=== PATIENT | male | born 1980 | race African-American/Black ===

== ENCOUNTER 2016-05-05 20:35 | Observation (INO) | payer OTHER ==
[~2016-05-05] VITALS: Ht 185.4 cm; Wt 86.2 kg
[~2016-05-05 20:35] MED LIST: CYCLOBENZAPRINE10 M1 PO; KEFLEX500 M1 PO; NAPROXEN500 M2 PO
--- NOTE | 2016-05-05 20:39 | NUR ---
PRESENTS TO ED FOR EVALUATION OF PAINFULL LEFT HIATAL HERNIA. REPORTS INCREASE IN PAIN X 2 DAYS AND UNABLE TO TALORATE PAIN NOW.
--- NOTE | 2016-05-05 21:02 | ED GI/GU/ABDOMINAL COMPLAINT ---
History of Present Illness General Chief Complaint: General Adult Stated Complaint: HERNIA? Source: patient Exam Limitations: no limitations Vital Signs & Intake/Output Vital Signs & Intake/Output Vital Signs Date Time Temp Pulse Resp B/P Pulse O2 O2 Flow FiO2 Ox Delivery Rate 05/05 2037 98.7 81 18 140/83 97 Room Air ED Intake and Output 05/06 0000 05/05 1200 Intake Total Output Total Balance Patient 190 lb Weight Allergies Coded Allergies: No Known Allergies (08/27/15) Reconcile Medications Cephalexin (Keflex) 500 MG CAPSULE 1 TAB PO Q12 NASAL FRACTURE Triage Note: PRESENTS TO ED FOR EVALUATION OF PAINFULL LEFT HIATAL HERNIA. REPORTS INCREASE IN PAIN X 2 DAYS AND UNABLE TO TALORATE PAIN NOW. Triage Nurses Notes Reviewed? yes Onset: Gradual Duration: hour(s):, day(s):, continues in ED Timing: single episode today Quality/Severity: sharpness Location: left groin Radiation: no radiation Prior Abdominal Problems: similar symptoms Modifying Factors: Improves With: rest. Associated Symptoms: swelling in left groin HPI: 35 yo gentleman presents with left groin pain. He notes, "Sometimes it gets swollen and when I lay on my back I can push it back in... but this time, I couldn't push it in." He notes no vomiting, diarrhea. He has had normal bowel movements. Past History Travel History Traveled to [place] past 21 day No Medical History Any Pertinent Medical History? see below for history Neurological: seizure Respiratory: asthma Musculoskeletal: chronic back pain Surgical History Surgical History: non-contributory Psychosocial History What is your primary language Persian Tobacco Use: Current Daily Use Daily Tobacco Use Amount/Type: => 5 Cigarettes daily Family History Hx Contributory? No Review of Systems Review of Systems Constitutional: Reports: no symptoms. EENTM: Reports: no symptoms. Respiratory: Reports: no symptoms. Cardiovascular: Reports: no symptoms. GI: Reports: no symptoms. Genitourinary: Reports: no symptoms. Musculoskeletal: Reports: no symptoms. Skin: Reports: no symptoms. Neurological/Psychological: Reports: no symptoms. Hematologic/Endocrine: Reports: no symptoms. Immunologic/Allergic: Reports: no symptoms. All Other Systems: Reviewed and Negative Physical Exam Physical Exam General Appearance: well developed/nourished, mild distress Head: atraumatic Eyes: Bilateral: normal appearance. Ears, Nose, Throat, Mouth: hearing grossly normal Neck: normal inspection Respiratory: normal breath sounds, chest non-tender, no respiratory distress, quiet respiration, lungs clear Cardiovascular: regular rate/rhythm Gastrointestinal: 3 X 4 CM HARD NODULAR MASS AND LEFT INGUINAL REGION CONSISTENT WITH HERNIA. aFTER SIGNIFICANT PRESSURE, i WAS NOT ABLE TO REDUCE THE HERNIA Back: normal inspection Extremities: normal range of motion Neurologic/Psych: no motor/sensory deficits, awake, alert, oriented x 3 Core Measures ACS in differential dx? No Severe Sepsis Present: No Septic Shock Present: No Progress Differential Diagnosis: hernia vs abscess vs other. Plan of Care: Orders Procedure Date/time Status Place in observation 05/05 2322 Active PARTIAL THROMBOPLASTIN TIME 05/05 2146 Complete PROTHROMBIN TIME 05/05 2146 Complete COMPREHENSIVE METABOLIC PANEL 05/05 2146 Complete CBC WITHOUT DIFFERENTIAL 05/05 2146 Complete Laboratory Tests 05/05/16 2210: Anion Gap 9, Estimated GFR > 60, BUN/Creatinine Ratio 13.0, Glucose 83, Calcium 9.0, Total Bilirubin 0.3, AST 19, ALT 33, Alkaline Phosphatase 72, Total Protein 6.7, Albumin 3.8, Globulin 2.9, Albumin/Globulin Ratio 1.3, PT 12.0, INR 1.14, APTT 30, CBC w Diff NO MAN DIFF REQ, RBC 5.04, MCV 81.4, MCH 26.5 L, RDW 15.2 H, MPV 7.8, Gran % 63.6, Lymphocytes % 25.3, Monocytes % 8.3, Eosinophils % 1.8, Basophils % 1.0, Absolute Granulocytes 4.1, Absolute Lymphocytes 1.6, Absolute Monocytes 0.5, Absolute Eosinophils 0.1, Absolute Basophils 0.1, PUBS MCHC 32.6 L Initial ED EKG: none Departure Departure Disposition: STILL A PATIENT Condition: Stable Clinical Impression Primary Impression: Incarcerated hernia Referrals: UNKNOWN (PCP/Family) Departure Forms: Customer Survey General Discharge Information Comments 05/05/16, 22:10... discussed with dr. sheffield (surgery)... will order ct scan and have surgical PA to evaluate OR/GI Note Spoke With: ZULEYKA BASURTO DO ED Treatment Decision: ITZ QUINTERO requires urgent operative management or an emergent procedure that cannot be performed in the Emergency Room setting. pt with incarcerated hernia. to 0r for repair. Transport To: [facility]
--- NOTE | 2016-05-05 21:44 | NUR ---
PT AWAITS MD TO ATTEMPT TO REDUCE HERNIA.
--- NOTE | 2016-05-05 22:01 | NUR ---
MED WITH DILAUDID 1 MG IV UNABLE TO DOCUMENT AT THIS TIME PHARMACY IS IN COMPUTER.
--- NOTE | 2016-05-05 22:08 | NUR ---
LABS DRAWN AND SENT.
[2016-05-05 22:15] LABS: ABSOLUTE BASOPHIL COUNT 0.1 /CUMM (0.0-0.2); ABSOLUTE EOSINOPHIL COUNT 0.1 /CUMM (0.0-0.7); ABSOLUTE GRANULOCYTE CT 4.1 /CUMM (1.4-6.5); ABSOLUTE LYMPH COUNT 1.6 /CUMM (1.2-3.4); ABSOLUTE MONOCYTE COUNT 0.5 /CUMM (0.10-0.60); EOSINOPHIL % 1.8 % (0-5); GRANULOCYTE % 63.6 % (42.2-75.2); MEAN CORPUSCULAR HGB 26.5 PG (27.0-31.0); MEAN CORPUSCULAR HGB CONC 32.6 G/DL (33.0-37.0); MEAN CORPUSCULAR VOLUME 81.4 FL (80.0-94.0); MEAN PLATELET VOLUME 7.8 FL (7.4-10.4); PLATELET COUNT 233 /CUMM (130-400); RBC DISTRIBUTION WIDTH 15.2 % (11.5-14.5); RED BLOOD CELL CT 5.04 /CUMM (4.70-6.10); WHITE BLOOD CELL COUNT 6.4 /CUMM (4.8-10.8)
--- NOTE | 2016-05-05 22:17 | NUR ---
SCAN ORDERED PER REQUEST OF SURGERY.
[2016-05-05 22:28] LABS: PTT 30 SEC (25-37)
--- NOTE | 2016-05-05 22:30 | NUR ---
SURGICAL PA AT BEDSIDE.
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
--- NOTE | 2016-05-05 23:19 | CT SCAN REPORT ---
EXAMINATION: CT ABDOMEN AND PELVIS WITHOUT CONTRAST CLINICAL INFORMATION: Left inguinal hernia. COMPARISON: None. TECHNIQUE: Contiguous axial thin section helical images of the abdomen and pelvis were performed without oral or IV contrast. The data set was reformatted in the coronal and sagittal planes and reviewed on an independent workstation. DLP: 288 mGy-cm. FINDINGS: There is dependent bibasilar atelectasis. The visualized lung bases are otherwise clear. The visualized portions of the heart are unremarkable. The liver is of normal size and attenuation without focal lesions nor intrahepatic biliary ductal dilation. A normal gallbladder is identified. There is no wall thickening or discernible pericholecystic fluid. The spleen, pancreas, adrenal glands are unremarkable. Both kidneys are of normal size and attenuation without hydronephrosis or nephrolithiasis. There is no abdominal free fluid. There is neither mesenteric nor retroperitoneal lymphadenopathy. There is a bowel containing left inguinal hernia. Proximal to this, there are dilated loops of small bowel. There is no pelvic free fluid. The urinary bladder is unremarkable. There is neither pelvic nor inguinal lymphadenopathy. Bone windows: Neither sclerotic nor lytic bone lesions are identified. IMPRESSION: Obstructive left inguinal hernia.
--- NOTE | 2016-05-05 23:45 | NUR ---
AWAITS OR TEAM.
[2016-05-06] VITALS: BP 108/78
--- NOTE | 2016-05-06 | NUR ---
PT USES WALKER OT AMBULATE AND WEARS BRACES TO ASSIT WITH AMBULATION.
--- NOTE | 2016-05-06 01:49 | Operative Report ---
Operative/Inv Procedure Report Surgery Date: 05/06/16 Name of Procedure: Open left inguinal hernia repair with mesh Pre-Operative Diagnosis: Incarcerated left inguinal hernia Post-Operative Diagnosis: Same Estimated Blood Loss: less than 50ml Surgeon/Skills Auditor: ZULEYKA BEARD Anesthesia: general endotracheal tube IV Fluids: 1000 cc Drains: none Specimens: none Complications: none Condition: stable Operative Indication: This is a 35-year-old male that presented with acute onset of left groin pain that started earlier today. Patient with a long history of a known left inguinal hernia. However today the hernia "popped out" and the patient was not able to push it back in. In the emergency room the patient was found to have a left incarcerated inguinal hernia causing a small bowel obstruction. An open repair with mesh was discussed in detail. All risks including but not limited to bleeding, infection, chronic pain, recurrence, and injury to surrounding structures were discussed in detail. Also the risk of possible small bowel resection was discussed. The patient understood everything and decided to proceed. Operative/Procedure Note Note: The patient was brought to the operating room and placed on the table in supine position. Venodyne stockings were placed and adequate general endotracheal anesthesia was obtained. A TAP block was performed by anesthesia. The patient was prepped and draped in standard surgical fashion. Began the procedure by making a 5 cm incision in the left groin over the inguinal canal. Of note, the hernia reduced with induction of general anesthesia. Incision was carried down through subcutaneous fat to Graciela's fascia which was opened using Bovie electrocautery maintaining hemostasis. External oblique aponeurosis was identified and opened along its fibers to the external ring. Cord structures were circumferentially dissected along the pubic tubercle. A Everton drain was placed underneath for retraction. We then examined the cord structures which were identified and then a small hernia sac was noted coming out of the indirect space. The hernia sac was isolated and dissected off cord structures all the way down to the external ring. The hernia sac was opened, no evidence of any abnormalities were noted, no bowel was identified within the hernia sac. At that point a high ligation of the hernia sac was performed using 2-0 Vicryl suture. The hernia sac was cut above the suture and handed off the field. A moderate defect was noted in the indirect space. No other hernia sacs/lipomas were identified. Cord structures were identified and preserved. A large plug was placed in the indirect space and secured superiorly and inferiorly using 2-0 Prolene suture. A patch was then placed over the pelvic floor and secured superiorly and inferiorly using 2-0 Prolene suture in a running fashion. At the completion the inguinal floor was adequately covered the mesh appeared to be in good position. No obvious bleeding was noted. There was adequate room for the cord structures going through the hernia patch. At that point the external oblique aponeurosis was closed using 2-0 Vicryl suture in a running fashion. Graciela's fascia was closed using 3-0 Vicryl suture in an interrupted fashion. Skin was closed using 4-0 Monocryl. Steri-Strips and dressings were placed. The patient was successfully extubated and transferred to the recovery room in stable condition. The patient tolerated the procedure well complications. Findings: indirect defect, hernia spontaneously reduced with induction, large plug and patch used
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
[2016-05-06 06:00] VITALS: BP 128/74
--- NOTE | 2016-05-06 06:08 | Admission Core Measures ---
Admission Lab Results I reviewed the following labs: Laboratory Tests 05/05 2209 Chemistry Sodium (137 - 145 mmol/L) 139 Potassium (3.5 - 5.1 mmol/L) 3.8 Chloride (98 - 107 mmol/L) 103 Carbon Dioxide (22 - 30 mmol/L) 27 Anion Gap (5 - 16) 9 BUN (9 - 20 mg/dL) 13 Creatinine (0.7 - 1.2 mg/dL) 1.0 Estimated GFR (>60 ml/min) > 60 BUN/Creatinine Ratio (7 - 25 %) 13.0 Glucose (65 - 99 mg/dL) 83 Calcium (8.4 - 10.2 mg/dL) 9.0 Total Bilirubin (0.2 - 1.3 mg/dL) 0.3 AST (17 - 59 U/L) 19 ALT (21 - 72 U/L) 33 Alkaline Phosphatase (< 127 U/L) 72 Total Protein (6.3 - 8.2 g/dL) 6.7 Albumin (3.5 - 5.0 g/dL) 3.8 Globulin (1.9 - 4.2 gm/dL) 2.9 Albumin/Globulin Ratio (1.1 - 2.2 %) 1.3 Coagulation PT (9.4 - 12.5 SEC) 12.0 INR (0.90 - 1.17) 1.14 APTT (25 - 37 SEC) 30 Hematology CBC w Diff NO MAN DIFF REQ WBC (4.8 - 10.8 /CUMM) 6.4 RBC (4.70 - 6.10 /CUMM) 5.04 Hgb (14.0 - 18.0 G/DL) 13.4 L Hct (42 - 52 %) 41.0 L MCV (80.0 - 94.0 FL) 81.4 MCH (27.0 - 31.0 PG) 26.5 L RDW (11.5 - 14.5 %) 15.2 H Plt Count (130 - 400 /CUMM) 233 MPV (7.4 - 10.4 FL) 7.8 Gran % (42.2 - 75.2 %) 63.6 Lymphocytes % (20.5 - 51.1 %) 25.3 Monocytes % (1.7 - 9.3 %) 8.3 Eosinophils % (0 - 5 %) 1.8 Basophils % (0.0 - 2.0 %) 1.0 Absolute Granulocytes (1.4 - 6.5 /CUMM) 4.1 Absolute Lymphocytes (1.2 - 3.4 /CUMM) 1.6 Absolute Monocytes (0.10 - 0.60 /CUMM) 0.5 Absolute Eosinophils (0.0 - 0.7 /CUMM) 0.1 Absolute Basophils (0.0 - 0.2 /CUMM) 0.1 PUBS MCHC (33.0 - 37.0 G/DL) 32.6 L Admission Meds I reviewed the following Meds: Current Medications Sig/Lacie Start time Last Medication Dose Stop Time Status Admin Cyclobenzaprine HCl 10 MG BID PRN 05/06 0230 AC (Flexeril 10MG Tab) Hydromorphone HCl 1 MG Q4P PRN 05/06 0215 AC (Dilaudid) Ondansetron HCl 4 MG Q6P PRN 05/06 0215 AC (Zofran) Oxycodone/ 1 TAB Q4P PRN 05/06 0215 AC Acetaminophen (Percocet) Oxycodone/ 2 TAB Q4P PRN 05/06 0215 AC Acetaminophen (Percocet) Acute Coronary Syndrome Inclusion Criteria ACS Diagnosis No Inpatient Core Measures LDL Reminder: If No, please order W/I first 24hr of stay Congestive Heart Failure Inclusion Criteria CHF Diagnosis No Cerebrovascular accident Inclusion Criteria CVA/TIA Diagnosis No Inpatient Core Measures Bedside Swallow Eval Reminder: If BSE failed, place ST order Antithrombotic Reminder: Order Antithrombotic Medication by end of day 2 Antithrombotic Reminder: Document Reason Antithrombotic Not ordered by end of day 2 AFIB/Flutter Reminder: If Present, add to problem list AFIB/Flutter Reminder: Order Anticoag Medication for pts with AFIB/Flutter Atherosclerosis Reminder: If Present, add to problem list LDL Reminder: If No, please order W/I first 24hr of stay PT Order Reminder: If No, please order Venous thromboembolism Inpatient Core Measures VTE Risk Factors: Acute medical illness, Smoking, Surgery VTE Prophylaxis Ordered Inpt Mech & Pharm No Mech VTE prophylaxis d/t No contraindications No VTE Pharm Prophylaxis d/t No contraindications Inclusion Criteria - Per Current guidelines, there needs to be overlap - treatment for the first 5 days of Warfarin therapy. - Parenteral Anticoagulation (IV or SC) needs to be - given along with Warfarin therapy. VTE Diagnosis No VTE Type NONE VTE Confirmed by (Test) NONE Problem List As ranked by this Provider includes Assessment & Plan 1. Incarcerated hernia HOME MEDS Home Med List Cyclobenzaprine HCl 10 MG TABLET 1 TAB PO BID PRN SPASM (Reported) Naproxen 500 MG TABLET 1 TAB PO BID PAIN (Reported)
--- NOTE | 2016-05-06 07:21 | Patient Discharge Instructions ---
Discharge Instructions General Discharge Information You were seen/treated for: Incarcerated left inguinal hernia You had these procedures: 05/05/16 Open left inguinal hernia repair with mesh Watch for these problems: Redness, swelling, fever, purulent drainage, signs of infection. Uncontrolled pain. Excessive bleeding. Unable to tolerated diet. Chest pain. Shortness of breath. Do not soak the wound: Yes No bath, but you may shower: Yes Other wound care: Daily dressing changes or as needed. Diet Continue normal diet: Yes Recommended Diet: Low Residue Activity Full Activity/No Limits: No Pounds, do NOT lift more than: 15 Other activity limits: No strenuous activity or exercise Acute Coronary Syndrome Inclusion Criteria At DC or during hospital stay patient has or had the following: ACS DIAGNOSIS No Discharge Core Measures Meds if any: Prescribed or Continued at Discharge Meds if any: NOT Prescribed or Continued at Discharge Congestive Heart Failure Inclusion Criteria At DC or during hospital stay patient has or had the following: CHF DIAGNOSIS No Discharge Core Measures Meds if any: Prescribed or Continued at Discharge Meds if any: NOT Prescribed or Continued at Discharge Cerebrovascular accident Inclusion Criteria At DC or during hospital stay patient has or had the following: CVA/TIA Diagnosis No Discharge Core Measures Meds if any: Prescribed or Continued at Discharge Meds if any: NOT Prescribed or Continued at Discharge Venous thromboembolism Inclusion Criteria VTE Diagnosis No VTE Type NONE VTE Confirmed by (Test) NONE Discharge Core Measures - Per Current guidelines, there needs to be overlap - treatment for the first 5 days of Warfarin therapy. - If discharged on Warfarin prior to 5 days of - overlap therapy, the patient will need to be - assessed for post discharge needs including - *Post discharge parental anticoagulation - *Warfarin and/or parental anticoagulation education - *Follow up date to check INR post discharge At least 5 days overlap therapy as Inpatient No Meds if any: Prescribed or Continued at Discharge Note: Overlap Therapy is Warfarin and Anticoagulant Meds if any: NOT Prescribed or Continued at Discharge
[2016-05-06] MEDS ORDERED: PERCOCET 5-3251 EACH PO (07:22)
--- NOTE | 2016-05-06 07:32 | PN- General Surgery ---
See Addendum Subjective Subjective: NAEO. No new c/o. Pain currently 7-11/14 but is about to receive pain meds. Pain is much improved per patient. He has not had clear liquid diet yet but no n/v. No flatus or BM. Voiding. Denies CP/SOB. Objective Vital Signs and I&Os Vital Signs Date Time Temp Pulse Resp B/P Pulse O2 O2 Flow FiO2 Ox Delivery Rate 05/06 599 97.8 84 18 128/74 98 Room Air 05/06 0000 97.4 70 16 108/78 95 Room Air 05/05 2037 98.7 81 18 140/83 97 Room Air Intake & Output 05/06 0800 05/06 0000 05/05 1600 05/05 0805/05 0000 05/04 1600 Intake Total 100 Output Total 550 Balance -450 Intake, IV 100 Intake, Oral 0 Output, Urine 550 Patient 190 lb 190 lb Weight Physical Exam: General: NAD, comfortable, A&Ox3 Chest: NRD, breathing comfortably on room air. RRR. Abdomen: soft, nondistended. Probably degenerative palpation. Left lower quadrant dressing clean dry and intact. +Bowel sounds x4 quadrants Ext: No calve swelling/TTP, vascularly intact bilateral lower extremities Current Medications: Current Medications Sig/Lacie Start time Last Medication Dose Route Stop Time Status Admin Cyclobenzaprine HCl 10 MG BID PRN 05/06 0230 AC PO Heparin Sodium 5,000 UNIT Q8 05/06 0600 AC 05/06 (Porcine) SC 0547 Hydromorphone HCl 1 MG Q4P PRN 05/06 0215 AC 05/06 IV 0727 Hydromorphone HCl 1 MG ONCE ONE 05/05 2330 DC 05/05 IV 05/05 2331 2343 Hydromorphone HCl 0 .STK-MED ONE 05/05 2316 DC .ROUTE Hydromorphone HCl 1 MG ONCE ONE 05/05 2199 DC 05/05 IV 05/05 Hydromorphone HCl 0 .STK-MED ONE 05/05 2158 DC .ROUTE Hydromorphone HCl 1 MG ONCE ONE 05/05 2114 DC 05/05 IM 05/05 Hydromorphone HCl 0 .STK-MED ONE 05/05 2104 DC .ROUTE Naloxone HCl 0.4 MG ONCE ONE 05/06 0300 DC 05/06 IV 05/06 0301 0251 Ondansetron HCl 4 MG Q6P PRN 05/06 214 AC IV Oxycodone/ 1 TAB Q4P PRN 05/06 214 AC Acetaminophen PO Oxycodone/ 2 TAB Q4P PRN 05/06 214 AC Acetaminophen PO Potassium Chloride 20 MEQ Q10H 05/06 214 AC 05/06 Dextrose/Sodium 1,000 ML IV 0251 Chloride Results Last 48 Hours of Labs: Laboratory Tests 05/06 05/05 0635 2210 Chemistry Sodium (137 - 145 mmol/L) Pending 139 Potassium (3.5 - 5.1 mmol/L) Pending 3.8 Chloride (98 - 107 mmol/L) Pending 103 Carbon Dioxide (22 - 30 mmol/L) Pending 27 Anion Gap (5 - 16) Pending 9 BUN (9 - 20 mg/dL) Pending 13 Creatinine (0.7 - 1.2 mg/dL) Pending 1.0 Estimated GFR (>60 ml/min) > 60 BUN/Creatinine Ratio (7 - 25 %) Pending 13.0 Glucose (65 - 99 mg/dL) 83 Calcium (8.4 - 10.2 mg/dL) 9.0 Total Bilirubin (0.2 - 1.3 mg/dL) 0.3 AST (17 - 59 U/L) 19 ALT (21 - 72 U/L) 33 Alkaline Phosphatase (< 127 U/L) 72 Total Protein (6.3 - 8.2 g/dL) 6.7 Albumin (3.5 - 5.0 g/dL) 3.8 Globulin (1.9 - 4.2 gm/dL) 2.9 Albumin/Globulin Ratio (1.1 - 2.2 %) 1.3 Coagulation PT (9.4 - 12.5 SEC) 12.0 INR (0.90 - 1.17) 1.14 APTT (25 - 37 SEC) 30 Hematology CBC w Diff Pending NO MAN DIFF REQ WBC (4.8 - 10.8 /CUMM) Pending 6.4 RBC (4.70 - 6.10 /CUMM) Pending 5.04 Hgb (14.0 - 18.0 G/DL) Pending 13.4 L Hct (42 - 52 %) Pending 41.0 L MCV (80.0 - 94.0 FL) Pending 81.4 MCH (27.0 - 31.0 PG) Pending 26.5 L RDW (11.5 - 14.5 %) Pending 15.2 H Plt Count (130 - 400 /CUMM) Pending 233 MPV (7.4 - 10.4 FL) Pending 7.8 Gran % (42.2 - 75.2 %) 63.6 Lymphocytes % (20.5 - 51.1 %) 25.3 Monocytes % (1.7 - 9.3 %) 8.3 Eosinophils % (0 - 5 %) 1.8 Basophils % (0.0 - 2.0 %) 1.0 Absolute Granulocytes (1.4 - 6.5 /CUMM) 4.1 Absolute Lymphocytes (1.2 - 3.4 /CUMM) 1.6 Absolute Monocytes (0.10 - 0.60 /CUMM) 0.5 Absolute Eosinophils (0.0 - 0.7 /CUMM) 0.1 Absolute Basophils (0.0 - 0.2 /CUMM) 0.1 PUBS MCHC (33.0 - 37.0 G/DL) Pending 32.6 L Assessment/Plan Assessment/Plan 35yo M POD#1 s/p left open inguinal hernia repair. AVSS. Patient stable. - Pain control - PRN zofran - Clear liquid diet for breakfast then advance as tolerated - I/O's - DC IVF when tolerating PO - OOB as desired - SC heparin and ALPS for DVT PPX - DC planning - Dressing changes starting tomorrow - Will d/w attending Core Measures/Miscellaneous Venous Thromboembolism VTE Risk Factors: Immobility, paresis, Surgery VTE Contraindications: No Contraindications VTE Prophylaxis Ordered Inpt Mech & Pharm VTE Diagnosis: No VTE Type: NONE VTE Confirmed by (Test): NONE Beta Angela Is Beta Angela a Home Med? No Antibiotics Is Patient on Antibiotics? No
[2016-05-06 08:00] LABS: ABSOLUTE BASOPHIL COUNT 0.1 /CUMM (0.0-0.2); ABSOLUTE EOSINOPHIL COUNT 0.1 /CUMM (0.0-0.7); ABSOLUTE GRANULOCYTE CT 4.7 /CUMM (1.4-6.5); ABSOLUTE LYMPH COUNT 2.8 /CUMM (1.2-3.4); ABSOLUTE MONOCYTE COUNT 0.7 /CUMM (0.10-0.60); BASOPHIL % 0.7 % (0.0-2.0); EOSINOPHIL % 1.8 % (0-5); GRANULOCYTE % 55.9 % (42.2-75.2); HEMATOCRIT 38.6 % (42-52); MEAN CORPUSCULAR HGB CONC 33.3 G/DL (33.0-37.0); MEAN CORPUSCULAR VOLUME 81.2 FL (80.0-94.0); MEAN PLATELET VOLUME 8.6 FL (7.4-10.4); PLATELET COUNT 200 /CUMM (130-400); RBC DISTRIBUTION WIDTH 15.1 % (11.5-14.5); RED BLOOD CELL CT 4.76 /CUMM (4.70-6.10); WHITE BLOOD CELL COUNT 8.4 /CUMM (4.8-10.8)
[2016-05-06 09:30] VITALS: BP 130/80
[2016-05-06 11:45] VITALS: BP 120/60
[2016-05-06 14:03] VITALS: BP 122/80
[2016-05-06 22:35] VITALS: BP 102/48
[2016-05-07 07:12] VITALS: BP 110/80
--- NOTE | 2016-05-07 08:03 | PN- General Surgery ---
Subjective Subjective: NAEO. Patient without new c/o. Pain well controlled. Tolerating diet without n /v. Patient states he has only been receiving clear liquid diet. He has passed flatus more than a couple of times. Voiding. Denies CP/SOB. Objective Vital Signs and I&Os Vital Signs Date Time Temp Pulse Resp B/P Pulse O2 O2 Flow FiO2 Ox Delivery Rate 05/07 0712 98.2 67 20 110/80 97 Room Air 05/06 2235 98.2 76 20 102/48 97 Room Air 05/06 1403 98.2 86 20 122/80 97 Room Air 05/06 1145 98.1 87 20 120/60 97 Room Air 05/06 1030 Room Air 05/06 0930 97.8 73 20 130/80 98 Room Air Intake & Output 05/07 0800 05/07 0000 05/06 1600 05/06 0800 05/06 0000 05/05 1600 Intake Total 1400 520 100 Output Total 2175 1400 400 550 Balance -2175 0 120 -450 Intake, IV 800 400 100 Intake, Oral 600 120 0 Number 0 Bowel Movements Output, Urine 2175 1400 400 550 Patient 190 lb 190 lb Weight Physical Exam: General: NAD, comfortable, A&Ox3 Chest: NRD, breathing comfortably on room air. RRR. Abdomen: soft, nondistended. Appropriately TTP to palpation. Left lower quadrant incision intact with steri strips. No erythema, swelling, purulent drainage, signs of infection. +Bowel sounds x4 quadrants Ext: No calve swelling/TTP, vascularly intact bilateral lower extremities Current Medications: Current Medications Sig/Lacie Start time Last Medication Dose Route Stop Time Status Admin Albuterol Sulfate 2 PUF Q4P PRN 05/06 1045 AC INH Bupivacaine HCl/ 30 ML .STK-MED ONE 05/06 816 DC Epinephrine Bitart SC 05/06 0818 Cefazolin Sodium 1,000 MG .STK-MED ONE 05/06 816 DC IV 05/06 0818 Cyclobenzaprine HCl 10 MG BID PRN 05/06 0230 AC PO Heparin Sodium 5,000 UNIT Q8 05/06 0600 AC 05/07 (Porcine) SC 0640 Hydromorphone HCl 1 MG Q4P PRN 05/06 0215 AC 05/07 IV 0519 Ondansetron HCl 4 MG .STK-MED ONE 01/30 2102 DC PO 05/06 2102 Ondansetron HCl 4 MG Q6P PRN 05/06 214 AC 05/06 IV 210 Oxycodone/ 1 TAB Q4P PRN 05/06 214 AC Acetaminophen PO Oxycodone/ 2 TAB Q4P PRN 05/06 214 AC 05/07 Acetaminophen PO 0022 Patient Medication 1 ED .STK-MED ONE 05/06 1400 DC Teaching ED 05/06 1401 Potassium Chloride 20 MEQ Q10H 05/06 214 AC 05/07 Dextrose/Sodium 1,000 ML IV 0006 Chloride Results Last 48 Hours of Labs: Laboratory Tests 05/06 05/05 0635 2210 Chemistry Sodium (137 - 145 mmol/L) 136 L 139 Potassium (3.5 - 5.1 mmol/L) 3.9 3.8 Chloride (98 - 107 mmol/L) 104 103 Carbon Dioxide (22 - 30 mmol/L) 28 27 Anion Gap (5 - 16) 4 L 9 BUN (9 - 20 mg/dL) 11 13 Creatinine (0.7 - 1.2 mg/dL) 0.9 1.0 Estimated GFR (>60 ml/min) > 60 > 60 BUN/Creatinine Ratio (7 - 25 %) 12.2 13.0 Glucose (65 - 99 mg/dL) 83 Calcium (8.4 - 10.2 mg/dL) 9.0 Total Bilirubin (0.2 - 1.3 mg/dL) 0.3 AST (17 - 59 U/L) 19 ALT (21 - 72 U/L) 33 Alkaline Phosphatase (< 127 U/L) 72 Total Protein (6.3 - 8.2 g/dL) 6.7 Albumin (3.5 - 5.0 g/dL) 3.8 Globulin (1.9 - 4.2 gm/dL) 2.9 Albumin/Globulin Ratio (1.1 - 2.2 %) 1.3 Coagulation PT (9.4 - 12.5 SEC) 12.0 INR (0.90 - 1.17) 1.14 APTT (25 - 37 SEC) 30 Hematology CBC w Diff NO MAN DIFF REQ NO MAN DIFF REQ WBC (4.8 - 10.8 /CUMM) 8.4 6.4 RBC (4.70 - 6.10 /CUMM) 4.76 5.04 Hgb (14.0 - 18.0 G/DL) 12.9 L 13.4 L Hct (42 - 52 %) 38.6 L 41.0 L MCV (80.0 - 94.0 FL) 81.2 81.4 MCH (27.0 - 31.0 PG) 27.0 26.5 L RDW (11.5 - 14.5 %) 15.1 H 15.2 H Plt Count (130 - 400 /CUMM) 200 233 MPV (7.4 - 10.4 FL) 8.6 7.8 Gran % (42.2 - 75.2 %) 55.9 63.6 Lymphocytes % (20.5 - 51.1 %) 33.7 25.3 Monocytes % (1.7 - 9.3 %) 7.9 8.3 Eosinophils % (0 - 5 %) 1.8 1.8 Basophils % (0.0 - 2.0 %) 0.7 1.0 Absolute Granulocytes (1.4 - 6.5 /CUMM) 4.7 4.1 Absolute Lymphocytes (1.2 - 3.4 /CUMM) 2.8 1.6 Absolute Monocytes (0.10 - 0.60 /CUMM) 0.7 H 0.5 Absolute Eosinophils (0.0 - 0.7 /CUMM) 0.1 0.1 Absolute Basophils (0.0 - 0.2 /CUMM) 0.1 0.1 PUBS MCHC (33.0 - 37.0 G/DL) 33.3 32.6 L Assessment/Plan Assessment/Plan 35yo M POD#2 s/p left open inguinal hernia repair. AVSS. Patient progressing well. - Pain control - PRN zofran - Regular diet for lunch - I/O's - OOB as desired - SC heparin and ALPS for DVT PPX - Dressing changed bedside - dc home after lunch if tolerating diet - Will d/w attending Core Measures/Miscellaneous Venous Thromboembolism VTE Risk Factors: Immobility, paresis, Surgery VTE Contraindications: No Contraindications VTE Prophylaxis Ordered Inpt Mech & Pharm VTE Diagnosis: No VTE Type: NONE VTE Confirmed by (Test): NONE Beta Angela Is Beta Angela a Home Med? No Antibiotics Is Patient on Antibiotics? No
[2016-05-07] MEDS ORDERED: COLACE100 M1 PO (09:21)
[2016-05-07 13:47] VITALS: BP 140/70
== END 2016-05-07 16:15 ==
LOC: ERH 20:35 → ENPENDDIS 23:23 → 2NA 23:23 → ERH 05-06 02:38 → 2NA 05-06 02:38
PROVIDERS: Pediatrics; Physician Assistant Surgical; ADMIT Surgery
DX: K40.30 Unilateral inguinal hernia, with obstruction, without gangrene, not specified as recurrent (principal)
CPT/HCPCS: 1255; 74176; 82436; 96372; 96374; 96376; C9399; G0378; J0131; J0690; J1644; J2250; J2310; J2405; J3010; J3101; J3490; J7042